=== PATIENT | male | born 1950 | race Two or more races ===

== ENCOUNTER 2017-07-01 13:33 | Observation (INO) | payer MEDICARE ==
[2017-07-01] MEDS ORDERED: ASPIRIN 81 MG CHEW PO STA (13:52)
[2017-07-01] MEDS ORDERED: NITROGLYCERIN OINT 1 INCH/GM PACKET TOPICAL STA (13:52)
--- NOTE | 2017-07-01 13:54 | ED ---
General Adult HPI - General Chief complaint: Chest Pain Stated complaint: Chest Pain Time Seen by Provider: 07/01/17 13:40 Source: patient, family, RN notes reviewed Mode of arrival: wheelchair Limitations: no limitations - History of Present Illness Initial comments: Patient is a pleasant 66-year-old male presenting to the emergency department complaining of chest discomfort. Onset of symptoms was yesterday. Symptoms been somewhat steady. Discomfort is mild this time. Discomfort is rated 2/10. No associated dyspnea, nausea, or diaphoresis. Discomfort is sternal however radiates occasionally towards the right. Discomfort is described as dull. No history of similar symptoms previously. No leg pain or leg swelling. - Related Data Home Medications Medication Instructions Recorded Confirmed Ferrous Sulfate [Iron] 325 mg PO DAILY 07/01/17 07/01/17 Metoprolol Tartrate [Lopressor] 25 mg PO DAILY 07/01/17 07/01/17 Thiamine [Vitamin B-1] 100 mg PO DAILY 07/01/17 07/01/17 Allergies Allergy/AdvReac Type Severity Reaction Status Date / Time No Known Allergies Allergy Verified 07/01/17 14:39 Review of Systems ROS Statement: Those systems with pertinent positive or pertinent negative responses have been documented in the HPI. ROS Other: All systems not noted in ROS Statement are negative. 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 Past Anesthesia/Blood Transfusion Reactions: No Reported Reaction Additional Past Anesthesia/Blood Transfusion Reaction / Comment(s): Pt states he has never had any surgery. Past Psychological History: No Psychological Hx Reported Smoking Status: Former smoker Past Alcohol Use History: Daily Past Drug Use History: None Reported - Past Family History Father History Unknown: Yes Additional Family Medical History / Comment(s): Father in his late 80's Mother Family Medical History: Myocardial Infarction ([place]) Additional Family Medical History / Comment(s): Mother of a massive [place] at the age of 53yrs. General Exam Limitations: no limitations General appearance: alert, in no apparent distress Head exam: Present: atraumatic Eye exam: Present: normal appearance, PERRL ENT exam: Present: normal oropharynx Neck exam: Present: normal inspection Respiratory exam: Present: normal lung sounds bilaterally. Absent: chest wall tenderness Cardiovascular Exam: Present: regular rate, normal rhythm Expanded Peripheral pulses: 2+: Radial (R), Radial (L), Posterior Tibialis (R), Posterior Tibialis (L), Dorsalis Pedis (R), Dorsalis Pedis (L) GI/Abdominal exam: Present: soft. Absent: tenderness Extremities exam: Present: normal inspection. Absent: pedal edema, calf tenderness Neurological exam: Present: alert, other (Facial palsy consistent with patient' s history of Martinez's palsy) Psychiatric exam: Present: normal affect, normal mood Skin exam: Present: normal color Course Vital Signs 07/01/17 07/01/17 07/01/17 13:33 13:53 14:00 Temperature 97.1 F L Pulse Rate 65 68 Pulse Rate [ 68 Link Cutter ] Respiratory 20 18 Rate Blood Pressure 157/85 171/78 O2 Sat by Pulse 99 100 Oximetry EKG Findings - EKG Comments: EKG Findings:: Normal sinus rhythm 64. [place] 160. QRS 88. QT 374. QTC 385. Normal axis. Normal QRS. Normal ST-T. Medical Decision Making - Medical Decision Making Patient reevaluated and resting comfortably in bed. Patient and family updated on results and plan. Case discussed in detail with Dr. Trimble, who will admit his patient with cardiology consult. - Lab Data Result diagrams: 07/01/17 13:50 07/01/17 13:50 Lab Results 07/01/17 07/01/17 07/01/17 Range/Units 13:50 13:50 13:50 WBC 7.3 (3.8-10.6) k/uL RBC 4.45 (4.30-5.90) m/uL Hgb 13.0 (13.0-17.5) gm/dL Hct 39.7 (39.0-53.0) % MCV 89.4 (80.0-100.0) fL MCH 29.3 (25.0-35.0) pg MCHC 32.8 (31.0-37.0) g/dL RDW 14.3 (11.5-15.5) % Plt Count 262 (150-450) k/uL Neutrophils % 65 % Lymphocytes % 21 % Monocytes % 6 % Eosinophils % 5 % Basophils % 1 % Neutrophils # 4.8 (1.3-7.7) k/uL Lymphocytes # 1.5 (1.0-4.8) k/uL Monocytes # 0.4 (0-1.0) k/uL Eosinophils # 0.4 (0-0.7) k/uL Basophils # 0.1 (0-0.2) k/uL PT (9.0-12.0) sec INR (<1.2) APTT (22.0-30.0) sec D-Dimer (<0.60) mg/L FEU Sodium 138 (137-145) mmol/L Potassium 5.0 (3.5-5.1) mmol/L Chloride 106 (98-107) mmol/L Carbon Dioxide 23 (22-30) mmol/L Anion Gap 9 mmol/L BUN 17 (9-20) mg/dL Creatinine 0.80 (0.66-1.25) mg/dL Est GFR (MDRD) Af Amer >60 (>60 ml/min/1.73 sqM) Est GFR (MDRD) Non-Af >60 (>60 ml/min/1.73 sqM) Glucose 117 H (74-99) mg/dL Calcium 9.6 (8.4-10.2) mg/dL Magnesium 1.8 (1.6-2.3) mg/dL Total Bilirubin 0.9 (0.2-1.3) mg/dL AST 20 (17-59) U/L ALT 24 (21-72) U/L Alkaline Phosphatase 116 (38-126) U/L Total Creatine Kinase 66 (55-170) U/L CK-MB (CK-2) 0.7 (0.0-2.4) ng/mL CK-MB (CK-2) Rel Index 1.1 Troponin I <0.012 (0.000-0.034) ng/mL Total Protein 7.6 (6.3-8.2) g/dL Albumin 4.3 (3.5-5.0) g/dL 07/01/17 Range/Units 13:50 WBC (3.8-10.6) k/uL RBC (4.30-5.90) m/uL Hgb (13.0-17.5) gm/dL Hct (39.0-53.0) % MCV (80.0-100.0) fL MCH (25.0-35.0) pg MCHC (31.0-37.0) g/dL RDW (11.5-15.5) % Plt Count (150-450) k/uL Neutrophils % % Lymphocytes % % Monocytes % % Eosinophils % % Basophils % % Neutrophils # (1.3-7.7) k/uL Lymphocytes # (1.0-4.8) k/uL Monocytes # (0-1.0) k/uL Eosinophils # (0-0.7) k/uL Basophils # (0-0.2) k/uL PT 10.2 (9.0-12.0) sec INR 1.0 (<1.2) APTT 25.5 (22.0-30.0) sec D-Dimer 0.43 (<0.60) mg/L FEU Sodium (137-145) mmol/L Potassium (3.5-5.1) mmol/L Chloride (98-107) mmol/L Carbon Dioxide (22-30) mmol/L Anion Gap mmol/L BUN (9-20) mg/dL Creatinine (0.66-1.25) mg/dL Est GFR (MDRD) Af Amer (>60 ml/min/1.73 sqM) Est GFR (MDRD) Non-Af (>60 ml/min/1.73 sqM) Glucose (74-99) mg/dL Calcium (8.4-10.2) mg/dL Magnesium (1.6-2.3) mg/dL Total Bilirubin (0.2-1.3) mg/dL AST (17-59) U/L ALT (21-72) U/L Alkaline Phosphatase (38-126) U/L Total Creatine Kinase (55-170) U/L CK-MB (CK-2) (0.0-2.4) ng/mL CK-MB (CK-2) Rel Index Troponin I (0.000-0.034) ng/mL Total Protein (6.3-8.2) g/dL Albumin (3.5-5.0) g/dL - Radiology Data Radiology results: image reviewed (Chest x-ray shows chronic changes without acute process.) Disposition Clinical Impression: Chest pain Disposition: ADMITTED IP TO THIS [facility] Referrals: Brando Trimble MD [Primary Care Provider] - 1-2 days Decision Time: 15:05
[2017-07-01 14:03] LABS: Basophils # (A) 0.1 k/uL (0-0.2); Basophils % (A) 1 %; CH 29.5; CHCM 33.2; Eosinophils # (A) 0.4 k/uL (0-0.7); Eosinophils % (A) 5 %; HCT 39.7 % (39.0-53.0); Luc # (Auto) 0.19; Luc % (Auto) 3; Lymphocytes # (A) 1.5 k/uL (1.0-4.8); Lymphocytes % (A) 21 %; MCH 29.3 pg (25.0-35.0); MCHC 32.8 g/dL (31.0-37.0); MCV 89.4 fL (80.0-100.0); Mean Platelet Volume 7.8; Monocytes # (A) 0.4 k/uL (0-1.0); Monocytes % (A) 6 %; Neutrophils # (A) 4.8 k/uL (1.3-7.7); Neutrophils % (A) 65 %; RBC 4.45 m/uL (4.30-5.90); RDW 14.3 % (11.5-15.5); WBC 7.3 k/uL (3.8-10.6); WBC (Perox) 7.33
[2017-07-01 14:13] LABS: ALT 24 U/L (21-72); AST 20 U/L (17-59); Alkaline Phosphatase 116 U/L (38-126); Anion Gap 9 mmol/L; Blood Urea Nitrogen 17 mg/dL (9-20); Calcium 9.6 mg/dL (8.4-10.2); Carbon Dioxide 23 mmol/L (22-30); Chloride 106 mmol/L (98-107); Glucose 117 mg/dL (74-99); Magnesium 1.8 mg/dL (1.6-2.3); Non-African American GFR(MDRD) >60 (>60 ml/min/1.73 sqM); Sodium 138 mmol/L (137-145); Total Bilirubin 0.9 mg/dL (0.2-1.3); Total Protein 7.6 g/dL (6.3-8.2)
[2017-07-01 14:20] LABS: Partial Thromboplastin Time 25.5 sec (22.0-30.0); Prothrombin Time 10.2 sec (9.0-12.0)
--- NOTE | 2017-07-01 14:22 | XR ---
EXAMINATION TYPE: XR chest 2V DATE OF EXAM: 07/01/2017 COMPARISON: Chest x-ray July 27, 2016. CTA chest August 02, 2016. HISTORY: Chest pain since yesterday TECHNIQUE: Frontal and lateral views of the chest are obtained. FINDINGS: Chronic emphysematous change is present bilaterally. There is no focal air space opacity, p leural effusion, or pneumothorax seen. The cardiac silhouette size is within normal limits with athe rosclerotic thoracic aorta. The osseous structures are intact. IMPRESSION: Moderate to advanced chronic emphysematous change without acute pulmonary process.
[2017-07-01 14:28] LABS: Creatine Kinase 66 U/L (55-170)
[2017-07-01 14:40] LABS: Creatine Kinase MB 0.7 ng/mL (0.0-2.4); Troponin I <0.012 ng/mL (0.000-0.034)
[2017-07-01] MEDS ORDERED: NITROGLYCERIN SL TABS 0.4 MG TAB SUBLINGUAL PRN (15:05)
[2017-07-01] MEDS: NITROGLYCERIN OINT 1 INCH/GM PACKET TOPICAL SCH ×2 (18:18→23:01)
[2017-07-01 19:59] LABS: Creatine Kinase 56 U/L (55-170)
[2017-07-01 20:12] LABS: Creatine Kinase MB 0.5 ng/mL (0.0-2.4); Troponin I <0.012 ng/mL (0.000-0.034)
[2017-07-01 22:24] VITALS: RESP 16
[2017-07-02 02:54] LABS: Cholesterol 180 mg/dL (<200); HDL Cholesterol 66 mg/dL (40-60)
[2017-07-02 03:02] LABS: Creatine Kinase 50 U/L (55-170)
[2017-07-02 03:16] LABS: Creatine Kinase MB 0.5 ng/mL (0.0-2.4); Troponin I <0.012 ng/mL (0.000-0.034)
[2017-07-02] MEDS: NITROGLYCERIN OINT 1 INCH/GM PACKET TOPICAL SCH ×2 (06:03→14:18)
--- NOTE | 2017-07-02 08:38 | P.CRDCN ---
History of Present Illness Consult date: 07/02/17 Chief complaint: Chest pain History of present illness: This is a pleasant 66-year-old gentleman with past medical history significant for hypertension and prior history of smoking as well as family history of CAD presented to the hospital complaining of chest discomfort. He was in his usual state of health where he was eating his dinner yesterday when he started experiencing chest discomfort as a sharp/pressure in the mid of the chest without any radiation and without any associated symptoms. The EKG showed sinus rhythm without any significant changes. The cardiac enzymes came in to be unremarkable. I recommended proceeding with a stress test to rule out any severe underlying CAD but the patient would rather go home and have the test as an outpatient. I recommended the patient to get up and around and if he continues to be pain- free he might be able to be discharged home and get the test done as an outpatient. Please note that the patient has history of GI bleed and he underwent surgery in the past. Past Medical History Past Medical History: No Reported History Additional Past Medical History / Comment(s): 02/2016 Nancy norwood History of Any Multi-Drug Resistant Organisms: None Reported Past Surgical History: No Surgical Hx Reported Additional Past Surgical History / Comment(s): "GI bleed surgery" Past Anesthesia/Blood Transfusion Reactions: No Reported Reaction Additional Past Anesthesia/Blood Transfusion Reaction / Comment(s): Pt states he has never had any surgery. Past Psychological History: No Psychological Hx Reported Additional Psychological History / Comment(s): Pt resides with an adult friend. He is independent. He drives. Smoking Status: Former smoker Additional Past Alcohol Use History / Comment(s): Pt states he started smoking at the age of 17 yrs. Quit smoking and drinking one year ago Past Drug Use History: None Reported - Past Family History Father History Unknown: Yes Additional Family Medical History / Comment(s): Father in his late 80's Mother Family Medical History: Myocardial Infarction ([place]) Additional Family Medical History / Comment(s): Mother of a massive [place] at the age of 53yrs. Medications and Allergies Home Medications Medication Instructions Recorded Confirmed Type Ferrous Sulfate [Iron] 325 mg PO DAILY 07/01/17 07/01/17 History Metoprolol Tartrate [Lopressor] 25 mg PO DAILY 07/01/17 07/01/17 History Thiamine [Vitamin B-1] 100 mg PO DAILY 07/01/17 07/01/17 History Allergies Allergy/AdvReac Type Severity Reaction Status Date / Time No Known Allergies Allergy Verified 07/01/17 14:39 Physical Exam Vitals: Vital Signs Temp Pulse Pulse Pulse Resp BP BP 07/02/17 04:00 97 F L 64 16 112/68 07/01/17 23:57 96.8 F L 67 16 121/71 07/01/17 20:00 97.5 F L 64 16 123/73 07/01/17 15:58 65 07/01/17 15:20 97.2 F L 67 18 07/01/17 15:10 97.8 F 65 18 117/73 07/01/17 14:00 68 18 171/78 07/01/17 13:53 68 07/01/17 13:33 97.1 F L 65 20 157/85 BP Pulse Ox 07/02/17 04:00 100 07/01/17 23:57 99 07/01/17 20:00 99 07/01/17 15:58 07/01/17 15:20 133/71 97 07/01/17 15:10 98 07/01/17 14:00 100 07/01/17 13:53 07/01/17 13:33 99 Intake and Output 07/01/17 07/02/17 07/02/17 22:59 06:59 14:59 Intake Total 10 Balance 10 Intake: IV 10 flush 10 Other: Voiding Method Toilet Toilet Urinal Urinal # Voids 2 2 Weight 71.3 kg - Constitutional General appearance: no acute distress - Respiratory Respiratory: bilateral: CTA - Cardiovascular Rhythm: regular Heart sounds: normal: S1, S2 Results 07/01/17 13:50 07/01/17 13:50 Cardiac Enzymes 07/01/17 07/01/17 07/01/17 Range/Units 13:50 13:50 19:24 AST 20 (17-59) U/L CK-MB (CK-2) 0.7 0.5 (0.0-2.4) ng/mL Troponin I <0.012 <0.012 (0.000-0.034) ng/mL 07/02/17 Range/Units 02:05 AST (17-59) U/L CK-MB (CK-2) 0.5 (0.0-2.4) ng/mL Troponin I <0.012 (0.000-0.034) ng/mL Coagulation 07/01/17 Range/Units 13:50 PT 10.2 (9.0-12.0) sec APTT 25.5 (22.0-30.0) sec Lipids 07/02/17 Range/Units 02:05 Triglycerides 82 (<150) mg/dL Cholesterol 180 (<200) mg/dL HDL Cholesterol 66 H (40-60) mg/dL CBC 07/01/17 Range/Units 13:50 WBC 7.3 (3.8-10.6) k/uL RBC 4.45 (4.30-5.90) m/uL Hgb 13.0 (13.0-17.5) gm/dL Hct 39.7 (39.0-53.0) % Plt Count 262 (150-450) k/uL Comprehensive Metabolic Panel 07/01/17 Range/Units 13:50 Sodium 138 (137-145) mmol/L Potassium 5.0 (3.5-5.1) mmol/L Chloride 106 (98-107) mmol/L Carbon Dioxide 23 (22-30) mmol/L BUN 17 (9-20) mg/dL Creatinine 0.80 (0.66-1.25) mg/dL Glucose 117 H (74-99) mg/dL Calcium 9.6 (8.4-10.2) mg/dL AST 20 (17-59) U/L ALT 24 (21-72) U/L Alkaline Phosphatase 116 (38-126) U/L Total Protein 7.6 (6.3-8.2) g/dL Albumin 4.3 (3.5-5.0) g/dL Current Medications Generic Name Dose Route Start Last Admin Trade Name Freq PRN Reason Stop Dose Admin Aspirin 325 mg 07/02/17 09:00 Aspirin PO DAILY [facility] Ferrous Sulfate 325 mg 07/02/17 09:00 Feosol PO DAILY [facility] Metoprolol Tartrate 25 mg 07/02/17 09:00 Lopressor PO DAILY EMANI Nitroglycerin 1 inch 07/01/17 18:00 07/02/17 06:03 Nitro-Bid Oint TOPICAL Not Given Q6HR [facility] Nitroglycerin 0.4 mg 07/01/17 15:05 Nitrostat SUBLINGUAL Q5M PRN Chest Pain Sodium Chloride 10 ml 07/01/17 21:00 07/01/17 19:48 Saline Flush IV 10 ml BID EMANI Administration Thiamine HCl 100 mg 07/02/17 09:00 Vitamin B-1 PO DAILY EMANI Intake and Output 07/01/17 07/02/17 07/02/17 22:59 06:59 14:59 Intake Total 10 Balance 10 Intake: IV 10 flush 10 Other: Voiding Method Toilet Toilet Urinal Urinal # Voids 2 2 Weight 71.3 kg 07/01/17 13:50 07/01/17 13:50 Assessment and Plan Plan: This is a pleasant 66-year-old gentleman with hypertension and prior history of smoking and significant family history of CAD presented with chest discomfort and was ruled out for acute coronary event. I recommended proceeding with a stress test and that can be done as an outpatient
[2017-07-02] MEDS ORDERED: ARTIFICIAL TEARS-HYPROMELLOSE DROPS 15 ML BTL BOTH EYES PRN (08:57)
[2017-07-02] MEDS ORDERED: THIAMINE 100 MG TAB PO SCH (09:00)
[2017-07-02] MEDS ORDERED: ASPIRIN 325 MG TAB PO SCH (09:00)
[2017-07-02] MEDS ORDERED: FERROUS SULFATE 325 MG TAB PO SCH (09:00)
[2017-07-02] MEDS ORDERED: METOPROLOL TARTRATE 25 MG TAB PO SCH (09:00)
--- NOTE | 2017-07-02 10:24 | P.GSCN ---
History of Present Illness Consult date: 07/02/17 Reason for Consult: Abdominal pain History of present illness: Patient came to the hospital for evaluation of indigestion. He felt a pressure type pain in the substernal location. Some mild upper abdominal pain as well. This only lasted for a few hours and then has resolved. He would like to go home today. He is tolerating his diet. He is afebrile. Lab work is unimpressive. He does have a history of bleeding ulcers. He underwent a oversewing of a bleeding ulcer by Dr. Barcenas about a year ago. He has an appointment with Dr. Barcenas in the next few weeks. Denies hematemesis, no melena, no rectal bleeding Review of Systems The patient denies any acute changes in vision or hearing, no dysphagia or odynophagia, no shortness of breath, no dysuria or hematuria, no headache, no runny nose, no rectal bleeding or melena, no unexplained weight loss Past Medical History Past Medical History: No Reported History Additional Past Medical History / Comment(s): 02/2016 Michelle'shasha norwood History of Any Multi-Drug Resistant Organisms: None Reported Past Surgical History: No Surgical Hx Reported Additional Past Surgical History / Comment(s): "GI bleed surgery" Past Anesthesia/Blood Transfusion Reactions: No Reported Reaction Additional Past Anesthesia/Blood Transfusion Reaction / Comm: Pt states he has never had any surgery. Past Psychological History: No Psychological Hx Reported Additional Psychological History / Comment(s): Pt resides with an adult friend. He is independent. He drives. Smoking Status: Former smoker Additional Past Alcohol Use History / Comment(s): Pt states he started smoking at the age of 17 yrs. Quit smoking and drinking one year ago Past Drug Use History: None Reported - Past Family History Father History Unknown: Yes Additional Family Medical History / Comment(s): Father in his late 80's Mother Family Medical History: Myocardial Infarction ([place]) Additional Family Medical History / Comment(s): Mother of a massive [place] at the age of 53yrs. Medications and Allergies Home Medications Medication Instructions Recorded Confirmed Type Ferrous Sulfate [Iron] 325 mg PO DAILY 07/01/17 07/01/17 History Metoprolol Tartrate [Lopressor] 25 mg PO DAILY 07/01/17 07/01/17 History Thiamine [Vitamin B-1] 100 mg PO DAILY 07/01/17 07/01/17 History Allergies Allergy/AdvReac Type Severity Reaction Status Date / Time No Known Allergies Allergy Verified 07/01/17 14:39 Surgical - Exam Vital Signs Temp Pulse Resp BP Pulse Ox 97.1 F L 65 20 157/85 99 07/01/17 13:33 07/01/17 13:33 07/01/17 13:33 07/01/17 13:33 07/01/17 13:33 Physical exam: General: Well-developed, well-nourished HEENT: Normocephalic, sclerae nonicteric Abdomen: Nontender, nondistended Extremities: No edema Neuro: Alert and oriented Results - Labs 07/01/17 13:50 07/01/17 13:50 Abnormal Lab Results - Last 24 Hours (Table) 07/01/17 07/02/17 07/02/17 Range/Units 13:50 02:05 02:05 Glucose 117 H (74-99) mg/dL Total Creatine Kinase 50 L (55-170) U/L HDL Cholesterol 66 H (40-60) mg/dL Diabetes panel 07/01/17 07/02/17 Range/Units 13:50 02:05 Sodium 138 (137-145) mmol/L Potassium 5.0 (3.5-5.1) mmol/L Chloride 106 (98-107) mmol/L Carbon Dioxide 23 (22-30) mmol/L BUN 17 (9-20) mg/dL Creatinine 0.80 (0.66-1.25) mg/dL Glucose 117 H (74-99) mg/dL Calcium 9.6 (8.4-10.2) mg/dL AST 20 (17-59) U/L ALT 24 (21-72) U/L Alkaline Phosphatase 116 (38-126) U/L Total Protein 7.6 (6.3-8.2) g/dL Albumin 4.3 (3.5-5.0) g/dL Triglycerides 82 (<150) mg/dL HDL Cholesterol 66 H (40-60) mg/dL Calcium panel 07/01/17 Range/Units 13:50 Calcium 9.6 (8.4-10.2) mg/dL Albumin 4.3 (3.5-5.0) g/dL Pituitary panel 07/01/17 Range/Units 13:50 Sodium 138 (137-145) mmol/L Potassium 5.0 (3.5-5.1) mmol/L Chloride 106 (98-107) mmol/L Carbon Dioxide 23 (22-30) mmol/L BUN 17 (9-20) mg/dL Creatinine 0.80 (0.66-1.25) mg/dL Glucose 117 H (74-99) mg/dL Calcium 9.6 (8.4-10.2) mg/dL Adrenal panel 07/01/17 Range/Units 13:50 Sodium 138 (137-145) mmol/L Potassium 5.0 (3.5-5.1) mmol/L Chloride 106 (98-107) mmol/L Carbon Dioxide 23 (22-30) mmol/L BUN 17 (9-20) mg/dL Creatinine 0.80 (0.66-1.25) mg/dL Glucose 117 H (74-99) mg/dL Calcium 9.6 (8.4-10.2) mg/dL Total Bilirubin 0.9 (0.2-1.3) mg/dL AST 20 (17-59) U/L ALT 24 (21-72) U/L Alkaline Phosphatase 116 (38-126) U/L Total Protein 7.6 (6.3-8.2) g/dL Albumin 4.3 (3.5-5.0) g/dL Assessment and Plan (1) Chest pain Narrative/Plan: Continue diet. Patient appears to be doing well enough to go home today. Short -term follow-up with Dr. Barcenas to discuss upper endoscopy. If the patient does stay admitted Will schedule for upper endoscopy tomorrow. Status: Acute
[2017-07-02 14:47] VITALS: BP 129/73; PULSE 62; TEMP 98
--- NOTE | 2017-07-02 19:34 | HP ---
CHIEF COMPLAINT: 66 -year-old white male with chest pain. HISTORY OF PRESENT ILLNESS: This 66 -year-old white male with chest pain, somewhat steady,discomfort is mild, discomfort 2 out of 10. No nausea, diaphoresis. Gave him some chest tightness that went away when he burped. He has a history of GERD. No abdominal pain with any food intake. No similar pain. No leg swelling. He had negative D. dimer in the ER. Home medicines are Metoprolol 25 mg daily. Vitamin B1 100 daily. Iron 325 daily. REVIEW OF SYSTEMS: 12 point review of systems negative except for what is mentioned in the history of present illness. PAST MEDICAL HISTORY: Hypertension, [place] palsy, never had any surgery. SOCIAL HISTORY: Former smoker. Daily alcohol. No illicit drugs. FAMILY HISTORY: Father in his late 80s. Mother of myocardial infarction age 53. PHYSICAL EXAMINATION: Well man in no acute distress. Temp 97.1, pulse 60s. Respiratory rate 16 to 18. Blood pressure 150s to 170s over 70s to 80s. O2 99 % on room air. Head Normocephalic, atraumatic. Ophthalmological: PERRLA. Neck is supple. Respiratory: Normal lung sounds. Cardiovascular: Regular rate and rhythm. Peripheral pulses 2+ dorsalis pedis, posterior tibial. GI: Soft. Extremities: No cyanosis, clubbing or edema. Neurological: Facial palsy consistent with [place] palsy. PSYCH: Fair mood and affect. NEUROLOGICAL: Skin, warm, dry and intact. D. dimer is negative. Troponin initial negative. Chest x-ray shows COPD. Sodium 138, potassium 5.0, hemoglobin 13. White count 7.3, BUN 17, creatinine 0.8. Magnesium 1.8. Total bili is 0.9. Liver enzymes are 20 to 24. ASSESSMENT: Atypical chest pain, suspect gastroesophageal reflux disease with dyspepsia, consult Dr. Barcenas. Await to rule out myocardial infarction. Possible stress test. Possibly increase his blood pressure medications as his blood pressure has been high since admission. MTDD
--- NOTE | 2017-07-03 10:56 | PN ---
SUBJECTIVE: A 66-year-old white male who was admitted with cardiac chest pain. Manager Editorial has seen the patient and is negative for myocardial infarction, negative D-dimer, negative for pulmonary embolism. Dr. Vasquez saw the patient this morning. They recommend a stress test to rule out any underlying coronary artery disease. Patient might want to do it as an outpatient. Awaiting cardiac input and see if he has chest pain walking around prior to discharge. If not will do it as an outpatient. Dr. Diaz saw him for surgical consultation for chronic GERD. Recommend follow up as an outpatient for endoscopy. Possible discharge home today. CHANDNI
== END 2017-07-02 16:17 | disposition home or self-care (01) ==
LOC: EC 13:33 → 6SEL 15:05 → 3OBS 07-02 08:03
PROVIDERS: ADMIT Family Medicine; ATTEND Family Medicine
DX: R07.89 Other chest pain (principal); R10.9 Unspecified abdominal pain; I10 Essential (primary) hypertension; G51.0 Bell's palsy; Z79.899 Other long term (current) drug therapy; Z87.891 Personal history of nicotine dependence; Z82.49 Family history of ischemic heart disease and other diseases of the circulatory system
CPT/HCPCS: 99285; 36415; 93005; 85379; 80061; 80053; 82550 ×2; 82553 ×2; 83735; 84484 ×2; 85025; 85610; 85730; 71020; G0378 ×2

== ENCOUNTER → 2017-07-18 | Outpatient (CLI) | payer MEDICARE ==
[~2017-07-18] MED LIST: REGADENOSON 0.4 MG/5 ML SYRINGE IV ONE
--- NOTE | 2017-07-18 14:01 | NM ---
EXAMINATION TYPE: NM stress lexiscan cardiolite DATE OF EXAM: 07/18/2017 COMPARISON: Chest x-ray 07/01/2017 HISTORY: Hypertension, I 10 TECHNIQUE: After the intravenous administration of 10.3 mCi Tc 99m Sestamibi - Cardiolite resting SP ECT images acquired 45 minutes post injection. The patient received 0.4mg Lexiscan, 27.2 mCi Tc 99m Sestamibi - Stress images obtained [address] injection FINDINGS: Review of stress and rest SPECT images demonstrates no distinct perfusion abnormality. Gated analysi s shows questionable paradoxical wall motion with an estimated left ventricular ejection fraction of 45 %. IMPRESSION: No scintigraphic evidence for reversible ischemia. Consider echocardiographic correlation for wall mo tion and decreased ejection fraction.
--- NOTE | 2017-07-19 06:34 | EST ---
DATE OF SERVICE: 07/18/2017 TYPE OF REPORT: Lexiscan Cardiolite stress test. INDICATION: Chest pain. BASELINE HEART RATE: 69 BASELINE BLOOD PRESSURE: 150/94 MAXIMUM HEART RATE: 98 MAXIMUM BLOOD PRESSURE: 166/84 85% MPHR: 100% MPHR: METS: MAX STAGE REACHED: TOTAL EXERCISE TIME: The test is being done to evaluate chest pain and palpitations. Baseline EKG showed a sinus rhythm with normal MN interval and QRS duration. A standard dose of Lexiscan was infused. EKGs taken during and after the infusion did not reveal any changes to suggest ischemia. Patient complained of shortness of breath. FINAL IMPRESSION: 1. Negative Lexiscan stress test. 2. Report on the nuclear images to be given by the radiologist. CHANDNI
== END ==
LOC: RADNMMAIN 08:41
PROVIDERS: ATTEND Family Medicine
DX: I10 Essential (primary) hypertension (principal)
CPT/HCPCS: 93017; 78452; A9500; J2785

== ENCOUNTER → 2017-08-16 | Outpatient (CLI) | payer MEDICARE ==
--- NOTE | 2017-08-16 15:22 | XR ---
EXAMINATION TYPE: XR chest 2V DATE OF EXAM: 08/16/2017 COMPARISON: July 01, 2017 HISTORY: Shortness of breath TECHNIQUE: Frontal and lateral views of the chest are obtained. FINDINGS: Scattered senescent parenchymal changes noted. Hyperinflation compatible with COPD. No evidence for infiltrate. No evidence for atelectasis. Heart size is stable. Mediastinal structures are stable and grossly unremarkable. No evidence for hilar prominence. Degenerative changes dorsal spine. IMPRESSION: 1. No evidence for acute pulmonary disease.
== END | disposition home or self-care (01) ==
LOC: RADXRMAIN 15:00
PROVIDERS: ATTEND Family Medicine
DX: R05 Cough (principal)
CPT/HCPCS: 71020

== ENCOUNTER 2018-05-25 11:49 | Observation (INO) | payer MEDICARE ==
--- NOTE | 2018-05-25 12:19 | ED ---
General Adult HPI - General Chief complaint: Arrhythmia/Palpitations Stated complaint: Chest Pain/Tachycardia Time Seen by Provider: 05/25/18 11:55 Source: patient, RN notes reviewed Mode of arrival: ambulatory Limitations: no limitations - History of Present Illness Initial comments: This is a 67-year-old male who presents to the emergency department complaining of palpitations. Patient states he was at home and his heart started to race and it really scared him. Patient states that lasted for an hour and finally subsided on his way into the emergency department. Patient denies any shortness of breath or difficulty breathing. Patient denies any chest pain. Patient denies any lightheadedness or dizziness. Patient denies any recent fever chills or cough. Patient states she's not had a history of this. Patient denies any leg swelling or calf tenderness. Patient states currently he feels back to his baseline. - Related Data Home Medications Medication Instructions Recorded Confirmed Ferrous Sulfate [Iron] 325 mg PO DAILY 07/01/17 05/25/18 Thiamine [Vitamin B-1] 100 mg PO DAILY 07/01/17 05/25/18 Acetaminophen [Tylenol Extra 500 mg PO Q6H PRN 05/25/18 05/25/18 Strength] Carvedilol [Coreg] 3.125 mg PO BID 05/25/18 05/25/18 Allergies Allergy/AdvReac Type Severity Reaction Status Date / Time No Known Allergies Allergy Verified 05/25/18 12:16 Review of Systems ROS Statement: Those systems with pertinent positive or pertinent negative responses have been documented in the HPI. ROS Other: All systems not noted in ROS Statement are negative. 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 Past Psychological History: No Psychological Hx Reported Smoking Status: Former smoker Past Alcohol Use History: None Reported Past Drug Use History: None Reported - Past Family History Father History Unknown: Yes Additional Family Medical History / Comment(s): Father in his late 80's Mother Family Medical History: Myocardial Infarction ([place]) Additional Family Medical History / Comment(s): Mother of a massive [place] at the age of 53yrs. General Exam - General Exam Comments Initial Comments: GENERAL: Patient is well-developed and well-nourished. Patient is nontoxic and well- hydrated and is in Milde distress. ENT: Neck is soft and supple. No significant lymphadenopathy is noted. Oropharynx is clear. Moist mucous membranes. Neck has full range of motion without eliciting any pain. EYES: The sclera were anicteric and conjunctiva were pink and moist. Extraocular movements were intact and pupils were equal round and reactive to light. Eyelids were unremarkable. PULMONARY: Unlabored respirations. Good breath sounds bilaterally. No audible rales rhonchi or wheezing was noted. CARDIOVASCULAR: There is a regular rate and rhythm without any murmurs gallops or rubs. ABDOMEN: Soft and nontender with normal bowel sounds. No palpable organomegaly was noted. There is no palpable pulsatile mass. SKIN: Skin is clear with no lesions or rashes and otherwise unremarkable. NEUROLOGIC: Patient is alert and oriented x3. Cranial nerves II through XII are grossly intact. Motor and sensory are also intact. Normal speech, volume and content. Symmetrical smile. MUSCULOSKELETAL: Normal extremities with adequate strength and full range of motion. No lower extremity swelling or edema. No calf tenderness. LYMPHATICS: No significant lymphadenopathy is noted PSYCHIATRIC: Normal psychiatric evaluation. Normal interpersonal interactions appears functionally intact in deals appropriately with others. No signs of depression. No signs of anxiety. Limitations: no limitations Course Vital Signs 05/25/18 05/25/18 11:52 12:05 Temperature 98.3 F 99.2 F Pulse Rate 89 Respiratory 18 Rate Blood Pressure 176/93 O2 Sat by Pulse 100 Oximetry Medical Decision Making - Medical Decision Making EKG shows a normal sinus rhythm at 81 bpm MA interval is 164 QRS is 86 QT interval 338 QTC is 392. EKG shows no ST segment elevation or depression or T wave abnormalities are noted Chest x-ray shows no acute abnormality. I spoke with Dr. Trimble he agreed to admit the patient admitted the patient I wrote admitting orders. - Lab Data Result diagrams: 05/25/18 12:15 05/25/18 12:15 Lab Results 06/29/18 06/29/18 06/29/18 Range/Units 12:15 12:15 12:15 WBC 6.6 (3.8-10.6) k/uL RBC 4.70 (4.30-5.90) m/uL Hgb 14.0 (13.0-17.5) gm/dL Hct 42.2 (39.0-53.0) % MCV 89.8 (80.0-100.0) fL MCH 29.7 (25.0-35.0) pg MCHC 33.0 (31.0-37.0) g/dL RDW 13.4 (11.5-15.5) % Plt Count 255 (150-450) k/uL Neutrophils % 58 % Lymphocytes % 24 % Monocytes % 7 % Eosinophils % 8 % Basophils % 1 % Neutrophils # 3.9 (1.3-7.7) k/uL Lymphocytes # 1.6 (1.0-4.8) k/uL Monocytes # 0.5 (0-1.0) k/uL Eosinophils # 0.5 (0-0.7) k/uL Basophils # 0.1 (0-0.2) k/uL PT (9.0-12.0) sec INR (<1.2) APTT (22.0-30.0) sec Sodium 140 (137-145) mmol/L Potassium 4.8 (3.5-5.1) mmol/L Chloride 105 (98-107) mmol/L Carbon Dioxide 23 (22-30) mmol/L Anion Gap 12 mmol/L BUN 16 (9-20) mg/dL Creatinine 0.80 (0.66-1.25) mg/dL Est GFR (CKD-EPI)AfAm >90 (>60 ml/min/1.73 sqM) Est GFR (CKD-EPI)NonAf >90 (>60 ml/min/1.73 sqM) Glucose 115 H (74-99) mg/dL Calcium 9.6 (8.4-10.2) mg/dL Magnesium 2.0 (1.6-2.3) mg/dL Total Bilirubin 0.8 (0.2-1.3) mg/dL AST 20 (17-59) U/L ALT 21 (21-72) U/L Alkaline Phosphatase 109 (38-126) U/L Total Creatine Kinase 58 (55-170) U/L CK-MB (CK-2) 0.5 (0.0-2.4) ng/mL CK-MB (CK-2) Rel Index 0.9 Troponin I <0.012 (0.000-0.034) ng/mL Total Protein 7.3 (6.3-8.2) g/dL Albumin 4.4 (3.5-5.0) g/dL TSH 2.260 (0.465-4.680) mIU/L Free T4 1.13 (0.78-2.19) ng/dL 05/25/18 Range/Units 12:15 WBC (3.8-10.6) k/uL RBC (4.30-5.90) m/uL Hgb (13.0-17.5) gm/dL Hct (39.0-53.0) % MCV (80.0-100.0) fL MCH (25.0-35.0) pg MCHC (31.0-37.0) g/dL RDW (11.5-15.5) % Plt Count (150-450) k/uL Neutrophils % % Lymphocytes % % Monocytes % % Eosinophils % % Basophils % % Neutrophils # (1.3-7.7) k/uL Lymphocytes # (1.0-4.8) k/uL Monocytes # (0-1.0) k/uL Eosinophils # (0-0.7) k/uL Basophils # (0-0.2) k/uL PT 9.6 (9.0-12.0) sec INR 1.0 (<1.2) APTT 24.5 (22.0-30.0) sec Sodium (137-145) mmol/L Potassium (3.5-5.1) mmol/L Chloride (98-107) mmol/L Carbon Dioxide (22-30) mmol/L Anion Gap mmol/L BUN (9-20) mg/dL Creatinine (0.66-1.25) mg/dL Est GFR (CKD-EPI)AfAm (>60 ml/min/1.73 sqM) Est GFR (CKD-EPI)NonAf (>60 ml/min/1.73 sqM) Glucose (74-99) mg/dL Calcium (8.4-10.2) mg/dL Magnesium (1.6-2.3) mg/dL Total Bilirubin (0.2-1.3) mg/dL AST (17-59) U/L ALT (21-72) U/L Alkaline Phosphatase (38-126) U/L Total Creatine Kinase (55-170) U/L CK-MB (CK-2) (0.0-2.4) ng/mL CK-MB (CK-2) Rel Index Troponin I (0.000-0.034) ng/mL Total Protein (6.3-8.2) g/dL Albumin (3.5-5.0) g/dL TSH (0.465-4.680) mIU/L Free T4 (0.78-2.19) ng/dL Disposition Clinical Impression: Palpitations, Lightheaded Disposition: ADMITTED IP TO THIS HOSP Referrals: Brando Trimble MD [Primary Care Provider] - 1-2 days Time of Disposition: 13:25
[2018-05-25 12:34] LABS: ALT 21 U/L (21-72); AST 20 U/L (17-59); Albumin 4.4 g/dL (3.5-5.0); Alkaline Phosphatase 109 U/L (38-126); Anion Gap 12 mmol/L; Blood Urea Nitrogen 16 mg/dL (9-20); Calcium 9.6 mg/dL (8.4-10.2); Carbon Dioxide 23 mmol/L (22-30); Chloride 105 mmol/L (98-107); Glucose 115 mg/dL (74-99); Potassium 4.8 mmol/L (3.5-5.1); Sodium 140 mmol/L (137-145); Total Bilirubin 0.8 mg/dL (0.2-1.3); Total Protein 7.3 g/dL (6.3-8.2)
[2018-05-25 12:39] LABS: Basophils # (A) 0.1 k/uL (0-0.2); Basophils % (A) 1 %; Eosinophils # (A) 0.5 k/uL (0-0.7); Eosinophils % (A) 8 %; HCT 42.2 % (39.0-53.0); Lymphocytes # (A) 1.6 k/uL (1.0-4.8); Lymphocytes % (A) 24 %; MCH 29.7 pg (25.0-35.0); MCV 89.8 fL (80.0-100.0); Mean Platelet Volume 7.2; Monocytes # (A) 0.5 k/uL (0-1.0); Monocytes % (A) 7 %; Neutrophils # (A) 3.9 k/uL (1.3-7.7); Neutrophils % (A) 58 %; Platelet Count 255 k/uL (150-450); RDW 13.4 % (11.5-15.5); WBC 6.6 k/uL (3.8-10.6)
--- NOTE | 2018-05-25 12:46 | XR ---
EXAMINATION TYPE: XR chest 2V DATE OF EXAM: 05/25/2018 COMPARISON: Chest x-ray August 16, 2017. CTA chest August 02, 2016. HISTORY: Dysrhythmia. TECHNIQUE: Frontal and lateral views of the chest are obtained. FINDINGS: Underlying emphysematous change is redemonstrated. There is no focal air space opacity, ple ural effusion, or pneumothorax seen. The cardiac silhouette size is within normal limits with athero sclerotic change in aortic knob. The osseous structures are intact. IMPRESSION: Chronic emphysematous change without acute pulmonary process.
[2018-05-25 12:51] LABS: Creatine Kinase 58 U/L (55-170)
[2018-05-25 12:52] LABS: T4, Free (Free Thyroxine) 1.13 ng/dL (0.78-2.19)
[2018-05-25 12:55] LABS: Partial Thromboplastin Time 24.5 sec (22.0-30.0); Prothrombin Time 9.6 sec (9.0-12.0)
[2018-05-25 13:03] LABS: Creatine Kinase MB 0.5 ng/mL (0.0-2.4); Troponin I <0.012 ng/mL (0.000-0.034)
[2018-05-25] MEDS ORDERED: NITROGLYCERIN SL TABS 0.4 MG TAB SUBLINGUAL PRN (13:25)
[2018-05-25] MEDS ORDERED: ACETAMINOPHEN TAB 500 MG TAB PO PRN (18:09)
[2018-05-25 18:58] LABS: Creatine Kinase 50 U/L (55-170)
[2018-05-25 19:08] LABS: Creatine Kinase MB 0.4 ng/mL (0.0-2.4); Troponin I <0.012 ng/mL (0.000-0.034)
[2018-05-25] MEDS: CARVEDILOL 3.125 MG TAB PO SCH (21:23)
[2018-05-26 00:48] LABS: Cholesterol 183 mg/dL (<200); HDL Cholesterol 74 mg/dL (40-60); LDL Cholesterol,Calculated 91 mg/dL (0-99); Triglycerides 89 mg/dL (<150)
[2018-05-26 01:10] LABS: Creatine Kinase 49 U/L (55-170)
[2018-05-26 01:21] LABS: Creatine Kinase MB 0.4 ng/mL (0.0-2.4); Troponin I <0.012 ng/mL (0.000-0.034)
[2018-05-26] MEDS ORDERED: CARVEDILOL 3.125 MG TAB PO SCH (07:30)
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
--- NOTE | 2018-05-26 08:32 | HP ---
HISTORY AND PHYSICAL DATE OF ADMISSION: 05/25/18 HISTORY OF PRESENT ILLNESS: 67-year-old white male who is admitted with some palpitations on the night prior. Past medical history of hypertension. He has real fast heart rates in the middle of the day around 10:00 am not associated with any chest pain. He is admitted for cardiac monitoring, cardiac evaluation. PAST MEDICAL HISTORY: GI bleed, GERD, COPD, angina, chest pain, Martinez's palsy, headaches, GERD, GI bleeding. SOCIAL HISTORY: He is a former smoker. Former alcohol. FAMILY HISTORY: Father in his 80s. Mother myocardial infarction in 50s. MEDICATIONS: Home medicines iron, thiamin, Coreg. ALLERGIES: No known drug allergies. PHYSICAL EXAMINATION: Temp 97, pulse 60s, respiratory 16 to 18, blood pressure is 110 to 120s over 60s to 70s. O2 is 96 to 99% on room air. Lungs are clear. GI soft. Hematology negative Homans. Psych fair mood and affect. Neurologic: Alert and oriented x3. Skin warm, dry, intact. Ophthalmologic pupils equal, round, react to light and accommodation. Neurologic: Alert and oriented times three. Labs are reviewed at this time. ASSESSMENT: 1. Palpitations of unclear etiology. 2. Hypertension. 3. History gastrointestinal bleeding. We will have Cardiology evaluate the patient. Possibly be discharged home. YOLETTE / JOANNEN: [id number] /
[2018-05-26] MEDS: CARVEDILOL 3.125 MG TAB PO SCH (08:40)
[2018-05-26 08:48] VITALS: BP 153/85; PULSE 90; RESP 18; TEMP 97.6
[2018-05-26] MEDS ORDERED: THIAMINE 100 MG TAB PO SCH (09:00)
[2018-05-26] MEDS ORDERED: FERROUS SULFATE 325 MG TAB PO SCH (09:00)
== END 2018-05-26 09:41 | disposition home or self-care (01) ==
LOC: EC 11:49 → 3OBS 13:29
PROVIDERS: ADMIT Family Medicine; ATTEND Family Medicine
DX: R00.2 Palpitations (principal); R00.0 Tachycardia, unspecified; I10 Essential (primary) hypertension; K21.9 Gastro-esophageal reflux disease without esophagitis; J44.9 Chronic obstructive pulmonary disease, unspecified; Z87.19 Personal history of other diseases of the digestive system; Z87.891 Personal history of nicotine dependence; Z87.11 Personal history of peptic ulcer disease; Z86.69 Personal history of other diseases of the nervous system and sense organs; Z82.49 Family history of ischemic heart disease and other diseases of the circulatory system
CPT/HCPCS: 36415; 71046; 80053; 80061; 82550; 82553; 83735; 84439; 84443; 84484; 85025; 85610; 85730; 93005; 94760; 99285

== ENCOUNTER 2019-08-24 13:59 | Emergency (ER) | payer MEDICARE ==
[2019-08-24 14:06] VITALS: BP 160/86; PULSE 82; RESP 18; TEMP 97.5
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
--- NOTE | 2019-08-24 15:15 | XR ---
EXAMINATION TYPE: XR chest 2V DATE OF EXAM: 08/24/2019 COMPARISON: 05/25/2018 INDICATION: Difficulty breathing TECHNIQUE: Frontal and lateral views of the chest are obtained. FINDINGS: The heart size is normal. The pulmonary vasculature is normal. The lungs are clear. There is hyperinflation flattening the diaphragms compatible COPD. Some increase d retrosternal airspace is present. IMPRESSION: 1. COPD
[2019-08-24 15:35] LABS: Basophils # (A) 0.1 k/uL (0-0.2); Basophils % (A) 1 %; Eosinophils # (A) 0.5 k/uL (0-0.7); Eosinophils % (A) 6 %; HCT 46.8 % (39.0-53.0); Lymphocytes # (A) 1.2 k/uL (1.0-4.8); Lymphocytes % (A) 14 %; MCH 32.3 pg (25.0-35.0); MCHC 34.1 g/dL (31.0-37.0); MCV 94.7 fL (80.0-100.0); Mean Platelet Volume 7.9; Monocytes # (A) 0.5 k/uL (0-1.0); Monocytes % (A) 7 %; Neutrophils # (A) 5.6 k/uL (1.3-7.7); Neutrophils % (A) 70 %; Platelet Count 257 k/uL (150-450); RBC 4.94 m/uL (4.30-5.90); RDW 14.9 % (11.5-15.5); WBC 8.1 k/uL (3.8-10.6)
[2019-08-24 15:54] LABS: ALT 11 U/L (21-72); AST 23 U/L (17-59); African American GFR (CKD) >90 (>60 ml/min/1.73 sqM); Albumin 4.3 g/dL (3.5-5.0); Alkaline Phosphatase 88 U/L (38-126); Anion Gap 10 mmol/L; Blood Urea Nitrogen 11 mg/dL (9-20); Calcium 9.3 mg/dL (8.4-10.2); Carbon Dioxide 25 mmol/L (22-30); Chloride 105 mmol/L (98-107); Glucose 103 mg/dL (74-99); Magnesium 2.1 mg/dL (1.6-2.3); Sodium 140 mmol/L (137-145); Total Bilirubin 0.8 mg/dL (0.2-1.3); Total Protein 7.6 g/dL (6.3-8.2)
[2019-08-24 16:03] LABS: INR 0.9 (<1.2); Partial Thromboplastin Time 25.7 sec (22.0-30.0); Prothrombin Time 10.2 sec (9.0-12.0)
== END 2019-08-24 16:55 | disposition home or self-care (01) ==
LOC: EC 13:59
DX: R53.1 Weakness (principal); R06.00 Dyspnea, unspecified; R20.2 Paresthesia of skin; F17.200 Nicotine dependence, unspecified, uncomplicated; Z79.899 Other long term (current) drug therapy
CPT/HCPCS: 36415; 71046; 80053; 83735; 83880; 84443; 84484; 85025; 85610; 85730; 93005; 99285

== ENCOUNTER 2019-10-06 21:45 | Emergency (ER) | payer MEDICARE ==
[2019-10-06 21:55] VITALS: RESP 18; TEMP 97.6
[2019-10-06] MEDS ORDERED: SODIUM CHLORIDE 0.9% 1,000 ML IV STA (21:59)
[2019-10-06] MEDS ORDERED: PANTOPRAZOLE 40 MG/10 ML VIAL IVP STA (21:59)
[2019-10-06] MEDS ORDERED: DICYCLOMINE 10 MG/ML 2 ML AMP IM STA (21:59)
[2019-10-06] MEDS ORDERED: ONDANSETRON 4 MG/2 ML VIAL IVP STA (21:59)
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
[2019-10-06 22:34] LABS: Basophils # (A) 0.1 k/uL (0-0.2); Basophils % (A) 1 %; Eosinophils # (A) 0.3 k/uL (0-0.7); Eosinophils % (A) 4 %; HCT 48.7 % (39.0-53.0); HGB 15.7 gm/dL (13.0-17.5); Lymphocytes # (A) 1.8 k/uL (1.0-4.8); Lymphocytes % (A) 24 %; MCH 30.8 pg (25.0-35.0); MCHC 32.1 g/dL (31.0-37.0); MCV 95.8 fL (80.0-100.0); Mean Platelet Volume 6.8; Monocytes # (A) 0.5 k/uL (0-1.0); Monocytes % (A) 7 %; Neutrophils # (A) 4.5 k/uL (1.3-7.7); Neutrophils % (A) 61 %; Platelet Count 258 k/uL (150-450); RBC 5.09 m/uL (4.30-5.90); RDW 13.5 % (11.5-15.5); WBC 7.4 k/uL (3.8-10.6)
[2019-10-06 22:38] LABS: ALT 10 U/L (21-72); AST 20 U/L (17-59); African American GFR (CKD) >90 (>60 ml/min/1.73 sqM); Albumin 4.6 g/dL (3.5-5.0); Alkaline Phosphatase 87 U/L (38-126); Amylase 85 U/L (30-110); Anion Gap 10 mmol/L; Blood Urea Nitrogen 14 mg/dL (9-20); Carbon Dioxide 27 mmol/L (22-30); Chloride 102 mmol/L (98-107); Glucose 120 mg/dL (74-99); Potassium 4.3 mmol/L (3.5-5.1); Sodium 139 mmol/L (137-145); Total Bilirubin 0.9 mg/dL (0.2-1.3); Total Protein 7.9 g/dL (6.3-8.2)
[2019-10-06 23:08] LABS: Appearance,Urine Clear (Clear); Bilirubin,Urine Negative (Negative); Blood,Urine Negative (Negative); Color,Urine Light Yellow; Glucose,Urine (UA) Negative (Negative); Ketones,Urine Negative (Negative); Leukocyte Esterase,Urine Negative (Negative); Nitrite,Urine Negative (Negative); Protein,Urine Negative (Negative); Specific Gravity,Urine 1.007 (1.001-1.035); Urobilinogen,Urine <2.0 mg/dL (<2.0)
[2019-10-06 23:44] VITALS: BP 169/92; PULSE 60
== END 2019-10-06 23:43 | disposition home or self-care (01) ==
LOC: EC 21:45
DX: R10.31 Right lower quadrant pain (principal); R68.83 Chills (without fever); F17.200 Nicotine dependence, unspecified, uncomplicated; Z79.899 Other long term (current) drug therapy; Z87.11 Personal history of peptic ulcer disease; Z86.2 Personal history of diseases of the blood and blood-forming organs and certain disorders involving the immune mechanism; Z98.890 Other specified postprocedural states; Z53.20 Procedure and treatment not carried out because of patient's decision for unspecified reasons
CPT/HCPCS: 36415; 80053; 82150; 83690; 85025; 81003; 99284; 96374; 96361; 96372; J0500; C9113

== ENCOUNTER 2019-10-21 05:20 | Emergency (ER) | payer MEDICARE ==
[2019-10-21 05:29] VITALS: TEMP 97.7
[2019-10-21 06:01] LABS: Basophils # (A) 0.1 k/uL (0-0.2); Basophils % (A) 1 %; Eosinophils # (A) 0.5 k/uL (0-0.7); Eosinophils % (A) 5 %; HGB 14.6 gm/dL (13.0-17.5); Lymphocytes # (A) 2.6 k/uL (1.0-4.8); Lymphocytes % (A) 24 %; MCH 32.2 pg (25.0-35.0); MCV 94.7 fL (80.0-100.0); Mean Platelet Volume 6.4; Monocytes # (A) 0.6 k/uL (0-1.0); Monocytes % (A) 6 %; Neutrophils % (A) 63 %; Platelet Count 260 k/uL (150-450); RBC 4.54 m/uL (4.30-5.90); WBC 11.1 k/uL (3.8-10.6)
[2019-10-21 06:02] LABS: Appearance,Urine Clear (Clear); Bilirubin,Urine Negative (Negative); Blood,Urine Negative (Negative); Color,Urine Colorless; Glucose,Urine (UA) Negative (Negative); Ketones,Urine Negative (Negative); Leukocyte Esterase,Urine Negative (Negative); Nitrite,Urine Negative (Negative); Protein,Urine Negative (Negative); Specific Gravity,Urine 1.003 (1.001-1.035); Urobilinogen,Urine <2.0 mg/dL (<2.0)
[2019-10-21 06:11] LABS: ALT 15 U/L (21-72); AST 19 U/L (17-59); African American GFR (CKD) >90 (>60 ml/min/1.73 sqM); Albumin 4.4 g/dL (3.5-5.0); Alkaline Phosphatase 113 U/L (38-126); Anion Gap 10 mmol/L; Blood Urea Nitrogen 10 mg/dL (9-20); Calcium 9.6 mg/dL (8.4-10.2); Carbon Dioxide 24 mmol/L (22-30); Chloride 103 mmol/L (98-107); Glucose 95 mg/dL (74-99); Non-African American GFR(CKD) >90 (>60 ml/min/1.73 sqM); Potassium 3.6 mmol/L (3.5-5.1); Sodium 137 mmol/L (137-145); Total Bilirubin 0.6 mg/dL (0.2-1.3); Total Protein 7.5 g/dL (6.3-8.2)
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
[2019-10-21 06:23] LABS: Creatine Kinase 51 U/L (55-170)
[2019-10-21 06:36] LABS: Creatine Kinase MB 0.6 ng/mL (0.0-2.4); Troponin I <0.012 ng/mL (0.000-0.034)
[2019-10-21 06:42] VITALS: BP 151/92; PULSE 80; RESP 17
== END 2019-10-21 06:42 | disposition home or self-care (01) ==
LOC: EC 05:20
DX: G58.9 Mononeuropathy, unspecified (principal); J44.9 Chronic obstructive pulmonary disease, unspecified; K21.9 Gastro-esophageal reflux disease without esophagitis; F32.9 Major depressive disorder, single episode, unspecified; F17.200 Nicotine dependence, unspecified, uncomplicated; Z79.02 Long term (current) use of antithrombotics/antiplatelets
CPT/HCPCS: 36415; 80053; 81003; 82550; 82553; 84484; 85025; 93005; 99284

== ENCOUNTER 2019-10-27 09:50 | Observation (INO) | payer MEDICARE ==
[2019-10-27] MEDS ORDERED: NITROGLYCERIN OINT 1 INCH/GM PACKET TOPICAL STA (09:55)
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
--- NOTE | 2019-10-27 10:25 | XR ---
EXAMINATION TYPE: XR chest 2V DATE OF EXAM: 10/27/2019 COMPARISON: 08/24/2019 HISTORY: Shortness of breath TECHNIQUE: Frontal and lateral views of the chest are obtained. FINDINGS: Scattered senescent parenchymal changes noted. Hyperinflation compatible with COPD. No evidence for infiltrate. No evidence for atelectasis. Heart size is stable. Mediastinal structures are stable and grossly unremarkable. No evidence for hilar prominence. Degenerative changes dorsal spine. IMPRESSION: 1. No evidence for acute pulmonary disease.
[2019-10-27 11:06] LABS: Basophils % (A) 0 %; Eosinophils # (A) 0.1 k/uL (0-0.7); Eosinophils % (A) 1 %; HCT 47.2 % (39.0-53.0); HGB 15.4 gm/dL (13.0-17.5); Lymphocytes # (A) 1.4 k/uL (1.0-4.8); Lymphocytes % (A) 15 %; MCH 31.5 pg (25.0-35.0); MCHC 32.6 g/dL (31.0-37.0); MCV 96.5 fL (80.0-100.0); Mean Platelet Volume 7.9; Monocytes # (A) 0.5 k/uL (0-1.0); Monocytes % (A) 5 %; Neutrophils # (A) 7.4 k/uL (1.3-7.7); Neutrophils % (A) 78 %; Platelet Count 216 k/uL (150-450); RBC 4.89 m/uL (4.30-5.90); RDW 13.3 % (11.5-15.5); WBC 9.5 k/uL (3.8-10.6)
[2019-10-27 11:16] LABS: ALT 11 U/L (21-72); AST 24 U/L (17-59); African American GFR (CKD) >90 (>60 ml/min/1.73 sqM); Albumin 4.5 g/dL (3.5-5.0); Alkaline Phosphatase 99 U/L (38-126); Anion Gap 11 mmol/L; Blood Urea Nitrogen 12 mg/dL (9-20); Calcium 9.7 mg/dL (8.4-10.2); Carbon Dioxide 23 mmol/L (22-30); Chloride 103 mmol/L (98-107); Glucose 122 mg/dL (74-99); Non-African American GFR(CKD) >90 (>60 ml/min/1.73 sqM); Potassium 4.9 mmol/L (3.5-5.1); Sodium 137 mmol/L (137-145); Total Bilirubin 1.2 mg/dL (0.2-1.3); Total Protein 7.6 g/dL (6.3-8.2)
[2019-10-27] MEDS ORDERED: NITROGLYCERIN SL TABS 0.4 MG TAB SUBLINGUAL PRN (12:14)
[2019-10-27 14:02] VITALS: RESP 18
[2019-10-27] MEDS ORDERED: ACETAMINOPHEN TAB 500 MG TAB PO PRN (14:58)
[2019-10-27] MEDS: THIAMINE 100 MG TAB PO SCH (16:49)
[2019-10-27] MEDS: CARVEDILOL 6.25 MG TAB PO SCH (16:49)
[2019-10-27] MEDS: FLUoxetine HCL 10 MG CAP PO SCH (16:49)
[2019-10-27] MEDS ORDERED: RX INFO: IV CONTRAST WAS GIVEN 1 EACH MISC MISCELLANE PRN (17:34)
--- NOTE | 2019-10-27 19:20 | CT ---
EXAMINATION TYPE: CT chest w con DATE OF EXAM: 10/27/2019 COMPARISON: 08/02/2016 HISTORY: Chest pain CT DLP: mGycm Automated exposure control for dose reduction was used. CONTRAST: CT scan of the chest is performed , patient injected with mL of . The contrast was Isovue 100 mL. FINDINGS: There is diffuse pulmonary emphysema. There is minimal subsegmental atelectasis right posterior lung helms. There is no evidence of a pulmonary mass. There is no mediastinal adenopathy. Thoracic aorta is atheromatous. There is no aneurysm or dissectio n. There are no hilar masses. I see no filling defects in the pulmonary arteries. Heart size is holden l. There is no pericardial effusion. There is anterior wedging of T6 vertebra with 50% loss of height . There is mild thoracic kyphotic deformity. Upper abdominal soft tissues are unremarkable. IMPRESSION: There is diffuse pulmonary emphysema. No suspicious pulmonary mass. There is a new compression fracture of T6 compared to old exam.
[2019-10-27] MEDS: NITROGLYCERIN OINT 1 INCH/GM PACKET TOPICAL SCH ×2 (19:32→23:35)
[2019-10-27 23:06] LABS: Cholesterol 201 mg/dL (<200); Triglycerides 97 mg/dL (<150)
[2019-10-27 23:15] LABS: LDL Cholesterol,Calculated 64 mg/dL (0-99)
[2019-10-27 23:42] LABS: HDL Cholesterol 118 mg/dL (40-60)
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
[2019-10-28] MEDS: NITROGLYCERIN OINT 1 INCH/GM PACKET TOPICAL SCH (03:53)
[2019-10-28] MEDS ORDERED: FERROUS SULFATE 325 MG TAB PO SCH (09:00)
[2019-10-28] MEDS ORDERED: ASPIRIN 81 MG PO SCH (09:00)
[2019-10-28] MEDS ORDERED: ASPIRIN 325 MG TAB PO SCH (09:00)
[2019-10-28] MEDS: FLUoxetine HCL 10 MG CAP PO SCH (11:17)
[2019-10-28] MEDS: CARVEDILOL 6.25 MG TAB PO SCH (11:18)
[2019-10-28] MEDS: THIAMINE 100 MG TAB PO SCH (11:18)
--- NOTE | 2019-10-28 11:54 | ECHOF ---
Referral Reason:cp MEASUREMENTS -------- HEIGHT: 165.1 cm WEIGHT: 74.8 kg BP: 151/83 RVIDd: 3.6 cm (< 3.3) IVSd: 1.0 cm (0.6 - 1.1) LVIDd: 4.0 cm (3.9 - 5.3) LVPWd: 1.6 cm (0.6 - 1.1) IVSs: 1.5 cm LVIDs: 2.8 cm LVPWs: 1.5 cm LA Diam: 3.5 cm (2.7 - 3.8) LAESV Index (A-L): 28.20 ml/m Ao Diam: 3.2 cm (2.0 - 3.7) AV Cusp: 1.3 cm (1.5 - 2.6) LA Diam: 2.5 cm (2.7 - 3.8) MV EXCURSION: 23.254 mm (> 18.000) MV EF SLOPE: 153 mm/s (70 - 150) EPSS: 1.5 cm MV E Carlton: 0.82 m/s MV DecT: 158 ms MV A Carlton: 0.66 m/s MV E/A Ratio: 1.24 RAP: 5.00 mmHg RVSP: 25.55 mmHg TAPSE: 24.21 mm FINDINGS -------- Sinus rhythm. This was a technically good study. LV size, wall thickness and systolic function are normal, with an EF greater than 55%. The left preet tricular size is normal. Overall left ventricular systolic function is normal with, an EF between 5 5 - 60 %. The diastolic filling pattern is normal for the age of the patient 8.46. The right ventricle is mildly enlarged. The left atrial size is normal. Normal LA size by volume 22+/-6 ml/m2. The right atrial size is normal. There is mild aortic valve sclerosis. There is no evidence of aortic regurgitation. Mild mitral annular calcification present. Mild mitral regurgitation is present. Mild tricuspid regurgitation present. Right ventricular systolic pressure is normal at < 35 mmHg. There is no evidence of pulmonary hypertension. There is no pulmonic regurgitation present. The aortic root size is normal. There is no pericardial effusion. CONCLUSIONS -------- 1. Sinus rhythm. 2. This was a technically good study. 3. LV size, wall thickness and systolic function are normal, with an EF greater than 55%. 4. The left ventricular size is normal. 5. Overall left ventricular systolic function is normal with, an EF between 55 - 60 %. 6. The diastolic filling pattern is normal for the age of the patient 8.46 7. The right ventricle is mildly enlarged. 8. The left atrial size is normal. 9. Normal LA size by volume 22+/-6 ml/m2. 10. The right atrial size is normal. 11. There is mild aortic valve sclerosis. 12. Mild mitral annular calcification present. 13. Mild mitral regurgitation is present. 14. Mild tricuspid regurgitation present. 15. Right ventricular systolic pressure is normal at < 35 mmHg. 16. There is no evidence of pulmonary hypertension. 17. There is no pulmonic regurgitation present. 18. The aortic root size is normal. 19. There is no pericardial effusion. FUR NAILER: Fadia Burdick RDCS
[2019-10-28 11:58] VITALS: TEMP 97.8
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
[2019-10-28 16:27] VITALS: BP 164/98; PULSE 68
--- NOTE | 2019-10-30 17:14 | P.DS ---
Providers Date of admission: 10/27/19 12:14 Expected date of discharge: 10/28/19 Attending physician: Brando Trimble Consults: 10/27/19 12:14 Consult Physician Urgent Consulting Provider: [facility] Consult Reason/Comments: Atypical angina Do you want consulting provider notified?: Yes 10/27/19 20:14 Consult Physician Routine Consulting Provider: Robbie Miller Consult Reason/Comments: thoracic fracture Do you want consulting provider notified?: Yes Primary care physician: Brando Trimble Hospital Course: Final Diagnoses: Atypical chest pain,Atypical angina, back pain. Acute coronary event ruled out as per cardiology-muscloskeletal Pulmonary emphysema T6 new compression fracture Hypertension Hospital course this is a 69-year-old gentleman admitted with atypical chest pain, emphysema, new T6 compression fracture. Evaluated by cardiology and orthopedic surgery. Echo reported normal LV function, EF 55-60%. Outpatient stress testing recommended per cardiology. Smoking cessation reinforced. Patient already has a brace at home and recommended to follow-up with orthopedic surgery in 1 week. Significant clinical improvement. Cleared by both cardiology and orthopedic surgery. Patient is being discharged home in a stable condition with guarded prognosis. EXAM: GENERAL: Alert and oriented 3, no acute distress CARDIOVASCULAR: S1, S2 regular.. No murmur RESPIRATION: Breath sounds diminished in the bases. No rhonchi or crackles. ABDOMEN: Soft, nontender . No guarding. no masses palpable.Bowel sounds heard. NERVOUS SYSTEM: No focal deficits. The impression and plan of care has been dictated as directed. : I performed a history and examination of this patient, discussed the same with the dictator. I agree with the dictator's note ,documented as a scribe. Any additional findings or plans will be noted. Patient Condition at Discharge: Stable Plan - Discharge Summary New Discharge Prescriptions: New Aspirin 81 mg PO DAILY chew Continue Thiamine [Vitamin B-1] 100 mg PO DAILY Ferrous Sulfate [Iron] 325 mg PO DAILY Acetaminophen [Tylenol Extra Strength] 500 mg PO Q6H PRN PRN Reason: Pain FLUoxetine HCL [PROzac] 10 mg PO DAILY Carvedilol [Coreg] 6.25 mg PO BID Discharge Medication List Ferrous Sulfate [Iron] 325 mg PO DAILY 07/01/17 [History] Thiamine [Vitamin B-1] 100 mg PO DAILY 07/01/17 [History] Acetaminophen [Tylenol Extra Strength] 500 mg PO Q6H PRN 05/25/18 [History] Carvedilol [Coreg] 6.25 mg PO BID 10/27/19 [History] FLUoxetine HCL [PROzac] 10 mg PO DAILY 10/27/19 [History] Aspirin 81 mg PO DAILY chew 10/28/19 [Rx] Follow up Appointment(s)/Referral(s): Robbie Miller DO [Doctor of Osteopathic Medicine] - 1 Week José Antonio Vasquez MD [STAFF PHYSICIAN] - 11/12/19 3:15 pm Brando Trimble MD [Primary Care Provider] - 3 Days Activity/Diet/Wound Care/Special Instructions: Patient has spinal brace at home which she should use when ambulating out of the house or for any activity. He does not need to use the brace while resting or bathing. Patient should avoid any heavy or rigorous activity. No repetitive bending or twisting. No climbing ladders. No lifting greater than 20 pounds. May ambulate as tolerated
== END 2019-10-28 16:35 ==
LOC: EC 09:50 → 1SOBS 12:14
PROVIDERS: ADMIT Family Medicine; ATTEND Family Medicine
DX: R07.89 Other chest pain (principal); M48.54XA Collapsed vertebra, not elsewhere classified, thoracic region, initial encounter for fracture; I10 Essential (primary) hypertension; I20.9 Angina pectoris, unspecified; J44.9 Chronic obstructive pulmonary disease, unspecified; K21.9 Gastro-esophageal reflux disease without esophagitis; G51.0 Bell's palsy; Z87.11 Personal history of peptic ulcer disease; F32.9 Major depressive disorder, single episode, unspecified; F17.200 Nicotine dependence, unspecified, uncomplicated; J43.9 Emphysema, unspecified; Z82.49 Family history of ischemic heart disease and other diseases of the circulatory system; Z79.899 Other long term (current) drug therapy
CPT/HCPCS: 93005 ×2; 99285; 36415; 93306; 85379; 80061; 80053; 83735; 84484; 85025; 71046; 71260; G0378 ×2; Q9967

== ENCOUNTER → 2019-12-20 | Outpatient (CLI) | payer MEDICARE ==
--- NOTE | 2019-12-23 07:31 | BD ---
EXAMINATION TYPE: Axial Bone Density DATE OF EXAM: 12/20/2019 COMPARISON: NONE CLINICAL HISTORY: M 89.9 Height: 66 Weight: 137.6 FRAX RISK QUESTIONS: Alcohol (3 or more units per day): no Family History (Parent hip fracture): no Glucocorticoids (More than 3mos): no (Ex: prednisone, prednisolone, methylprednisolone, dexamethasone, and hydrocortisone). History of Fracture in Adulthood: yes Secondary Osteoporosis: 1. Type 1 Diabetes: no 2. Hyperthyroidism: no 3. Menopause before 45: n/a 4. Malnutrition: no 5. Chronic liver disease: no Rheumatoid Arthritis: no Current Tobacco Use: yes RISK FACTORS HISTORY OF: Spine Fracture: possible t-spine fx When: October 2019 Surgery to Spine/Hip(right/left)/Wrist (right/left): no Family History of Osteoporosis: no Active: yes Diet low in dairy products/other sources of calcium: no Lost more than 2 inches in height since high school: no MEDICATIONS: fluoxetine, carvedilol Additional History: EXAM MEASUREMENTS: Bone mineral densitometry was performed using the Kasumi-sou System. Bone mineral density as measured about the Lumbar spine is: ----- L1-L4(G/cm2): 1.126 T Score Values are as follows: ----- L2: -1.6 ----- L3: 0.6 ----- L4: 0.9 ----- L1-L4: -0.4 Bone mineral density : baseline Bone mineral density about the R hip (g/cm2): 0.944 Bone mineral density about the L hip (g/cm2): 1.048 T Score values are as follows: -----R Neck: -0.7 -----L Neck: 0.1 -----R Total: -0.5 -----L Total: -0.3 Bone mineral density : baseline IMPRESSION: Normal (Values between +1 and -1 indicate normal bone mass). Consider repeating this study in 5 year s or sooner if there is some new clinical indication. NOTE: T-SCORE=SD OF THE YOUNG ADULT MEAN.
== END | disposition home or self-care (01) ==
LOC: RADBDWWP 14:39
PROVIDERS: ATTEND Family Medicine
DX: M89.9 Disorder of bone, unspecified (principal)
CPT/HCPCS: 77080

== ENCOUNTER 2020-01-15 18:53 | Observation (INO) | payer MEDICARE ==
[2020-01-15] MEDS ORDERED: SODIUM CHLORIDE 0.9% 1,000 ML IV STA (19:24)
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
[2020-01-15 19:34] LABS: Basophils # (A) 0.1 k/uL (0-0.2); Basophils % (A) 1 %; Eosinophils # (A) 0.6 k/uL (0-0.7); Eosinophils % (A) 9 %; HCT 45.1 % (39.0-53.0); HGB 15.4 gm/dL (13.0-17.5); Lymphocytes # (A) 1.2 k/uL (1.0-4.8); Lymphocytes % (A) 20 %; MCH 33.2 pg (25.0-35.0); MCHC 34.1 g/dL (31.0-37.0); MCV 97.4 fL (80.0-100.0); Mean Platelet Volume 8.4; Monocytes # (A) 0.4 k/uL (0-1.0); Monocytes % (A) 6 %; Neutrophils # (A) 3.8 k/uL (1.3-7.7); Neutrophils % (A) 61 %; Platelet Count 291 k/uL (150-450); RBC 4.62 m/uL (4.30-5.90); RDW 13.7 % (11.5-15.5); WBC 6.3 k/uL (3.8-10.6)
[2020-01-15 19:45] LABS: ALT 11 U/L (4-49); AST 25 U/L (17-59); African American GFR (CKD) >90 (>60 ml/min/1.73 sqM); Albumin 4.6 g/dL (3.5-5.0); Alkaline Phosphatase 91 U/L (38-126); Anion Gap 7 mmol/L; Blood Urea Nitrogen 8 mg/dL (9-20); Calcium 9.4 mg/dL (8.4-10.2); Carbon Dioxide 27 mmol/L (22-30); Chloride 100 mmol/L (98-107); Glucose 110 mg/dL (74-99); Non-African American GFR(CKD) >90 (>60 ml/min/1.73 sqM); Potassium 4.5 mmol/L (3.5-5.1); Sodium 134 mmol/L (137-145); Total Protein 7.7 g/dL (6.3-8.2)
--- NOTE | 2020-01-15 19:52 | CT ---
EXAMINATION TYPE: CT brain wo con DATE OF EXAM: 01/15/2020 COMPARISON: 02/29/2016 HISTORY: Dizziness CT DLP: 1113.4 mGycm Automated exposure control for dose reduction was used. Multiple axial sections were obtained of the brain without contrast. FINDINGS: Ventricles have normal size. There is no mass effect nor midline shift. There is no sign of intracran ial hemorrhage. There is cerebral cortical atrophy. Calvarium is intact. IMPRESSION: Cerebral atrophy. No acute intracranial abnormality. No change.
[2020-01-15 19:53] LABS: INR 0.9 (<1.2); Partial Thromboplastin Time 23.2 sec (22.0-30.0); Prothrombin Time 9.6 sec (9.0-12.0)
--- NOTE | 2020-01-15 20:08 | XR ---
EXAMINATION TYPE: XR chest 2V DATE OF EXAM: 01/15/2020 COMPARISON: 10/27/2019 HISTORY: Syncope TECHNIQUE: FINDINGS: There is no heart failure nor confluent pneumonic infiltrate. There is pulmonary hyperinfla tion and mild flattening of the diaphragm. Heart size is normal. There are no hilar masses. There are chest leads. Bony thorax shows T6 50% anterior wedging with mild thoracic kyphosis. IMPRESSION: Old compression fracture of T6 unchanged. COPD. No acute lung disease.
[2020-01-15] MEDS ORDERED: NALOXONE 0.4 MG/ML 1 ML VIAL IV PRN (20:24)
[2020-01-15 21:05] LABS: Appearance,Urine Clear (Clear); Color,Urine Yellow; Glucose,Urine (UA) Negative (Negative); Ketones,Urine Negative (Negative); Protein,Urine Negative (Negative); Specific Gravity,Urine 1.005 (1.001-1.035)
[2020-01-15 21:06] LABS: Bilirubin,Urine Negative (Negative); Blood,Urine Negative (Negative); Leukocyte Esterase,Urine Negative (Negative); Nitrite,Urine Negative (Negative); Urobilinogen,Urine 0.2 mg/dL (<2.0)
[2020-01-16 02:17] VITALS: RESP 18
[2020-01-16] MEDS ORDERED: FLUoxetine HCL 10 MG CAP PO SCH (08:00)
[2020-01-16] MEDS ORDERED: THIAMINE 100 MG TAB PO SCH (08:00)
[2020-01-16] MEDS ORDERED: FERROUS SULFATE 325 MG TAB PO SCH (08:00)
[2020-01-16] MEDS ORDERED: SODIUM CHLORIDE 0.9% 1,000 ML IV SCH (08:45)
[2020-01-16] MEDS ORDERED: OMEGA3S PO SCH (09:00)
[2020-01-16] MEDS ORDERED: C E ZINC COPPER PO SCH (09:00)
[2020-01-16] MEDS ORDERED: LUT PO SCH (09:00)
[2020-01-16] MEDS ORDERED: [UNRECOGNIZED DRUG - OTHER] PO SCH (09:00)
[2020-01-16] MEDS ORDERED: LOSARTAN 50 MG TAB PO SCH (09:00)
--- NOTE | 2020-01-16 09:20 | HP ---
HISTORY AND PHYSICAL A 69-year-old male came to the hospital after a near syncopal episode, became lightheaded when he was up in the kitchen, less than 10 to 12 minutes, it just resolved when he is lying down. He had no spinning sensation. No confusion. No weakness. Just generalized weakness where he nearly passed out. He has been admitted to the hospital. His cardiac enzymes are all negative. CAT scan did not show a whole lot of the brain. Chest x-ray is normal. HOME MEDS: 1. Prozac 10 mg daily. 2. Coreg 6.25 b.i.d. 3. Vitamins. 4. Iron 325 daily. 5. Thiamine 100 mg daily. 6. Tylenol Extra Strength p.r.n. for pain. 7. Aspirin 81 mg daily. ALLERGIES: Negative. 14 POINT REVIEW OF SYSTEMS: Negative except for as mentioned in HPI. PAST MEDICAL HISTORY: GI bleed, GERD, angina, COPD, chest pain, history of Martinez's palsy, gastric ulcer, headaches, history of gastric ulcers, GI bleed, depression, smoking, current Monday smoker. FAMILY HISTORY: Father in his 80s. Mother myocardial infarction. PHYSICAL EXAMINATION: Vital signs are stable. Afebrile. CARDIOVASCULAR: S1, S2. LUNGS: Clear. GI: Soft. HEMATOLOGIC: Negative Homans. PSYCH: Fair mood and affect. OPHTHALMOLOGIC: Pupils equal, round, reactive to light and accommodation. SKIN: Normal skin tone. CAROTIDS: No chronic bruit. Strength is 5/5 x4 extremities. ASSESSMENT: Near syncope, unclear etiology. Labs are decent. Myocardial infarction is ruled out. Will get neurology to clear him and then possible discharge home later as he is feeling better at this time. Labs are normal. No signs of any GI bleeding. Hemoglobin is stable. MMODL / IJN: [id number] /
[2020-01-16] MEDS ORDERED: IV FLUID CONTINUATION 1,000 ML IV ONE (09:55)
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
--- NOTE | 2020-01-16 14:40 | P.PCN ---
Preoperative Diagnosis: Indication: Presyncope Procedure: Tilt table test Baseline 12-lead EKG shows sinus mechanism with normal MO, narrow QRS, normal ST segments, normal QT interval, no delta or epsilon waves Baseline blood pressure is 166/72, Baseline heart rate is 62 bpm. The patient was tilted upright at a 70 angle as per protocol. Blood pressure pressure remained within normal limits throughout the test. Heart rate remained stable. Patient remained asymptomatic for the procedure. Patient was laid flat at the end of the procedure. Impression Normal twelve-lead EKG No evidence for neurocardiogenic syncope or dysautonomia
[2020-01-16 16:17] VITALS: BP 120/70; PULSE 64; TEMP 98.2
[2020-01-16] MEDS ORDERED: CARVEDILOL 6.25 MG TAB PO SCH (19:00)
== END 2020-01-16 17:05 | disposition home or self-care (01) ==
LOC: EC 18:53 → 1SOBS 20:24
PROVIDERS: ADMIT Family Medicine; ATTEND Family Medicine
DX: R55 Syncope and collapse (principal); I20.9 Angina pectoris, unspecified; J44.9 Chronic obstructive pulmonary disease, unspecified; K21.9 Gastro-esophageal reflux disease without esophagitis; I10 Essential (primary) hypertension; F17.200 Nicotine dependence, unspecified, uncomplicated; F32.9 Major depressive disorder, single episode, unspecified; Z87.11 Personal history of peptic ulcer disease; G31.9 Degenerative disease of nervous system, unspecified; Z79.82 Long term (current) use of aspirin; Z79.899 Other long term (current) drug therapy; Z82.49 Family history of ischemic heart disease and other diseases of the circulatory system
CPT/HCPCS: 93005 ×2; 96361 ×3; 96360; 99285; 36415; 93660; 85379; 80053; 84484 ×2; 85025; 85610; 85730; 81003; 71046; 70450; G0378 ×2